=== PATIENT | female | born 1995 | race Two or more races ===

== ENCOUNTER 2018-08-25 11:35 | Emergency (ER) | payer MEDICAID ==
[~2018-08-25] VITALS: Ht 160 cm; Wt 81.6 kg
[2018-08-25 11:56] VITALS: BP 110/75
[2018-08-25] MEDS ORDERED: ROBAXIN500 MG PO (12:07)
[2018-08-25] MEDS ORDERED: LIDOCAINE700 M1 TP (12:07)
[2018-08-25] MEDS ORDERED: TYLENOL EXTRA500 MG ORAL (12:07)
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
[2018-08-25] MEDS ORDERED: Acetaminophen 500mg (ES) tab ORAL ONE (12:15)
[2018-08-25] MEDS ORDERED: Methocarbamol 500mg tab ORAL ONE (12:15)
[2018-08-25 12:16] VITALS: BP 110/75
== END 2018-08-25 12:40 | disposition home or self-care (01) ==
LOC: EMR 12:00
DX: M54.2 Cervicalgia (principal); M54.9 Dorsalgia, unspecified; V43.52XA Car driver injured in collision with other type car in traffic accident, initial encounter; Y92.410 Unspecified street and highway as the place of occurrence of the external cause
CPT/HCPCS: 99283